=== PATIENT | female | born 1955 | race Caucasian/White ===

== ENCOUNTER → 2018-01-08 | Outpatient (CLI) | payer OTHER | LOC: COL.PUL 12-31 10:50 | DX: J44.9 Chronic obstructive pulmonary disease, unspecified (principal) ==

== ENCOUNTER → 2018-07-31 | Outpatient (CLI) | payer OTHER | LOC: COL.PUL 07-29 08:50 | DX: J44.1 Chronic obstructive pulmonary disease with (acute) exacerbation (principal) ==

== ENCOUNTER → 2020-06-21 | Outpatient (CLI) | payer MEDICARE, OTHER ==
[~2020-06-21] VITALS: Ht 154.9 cm; Wt 86.2 kg
[~2020-06-21] MED LIST: ASPIRIN E.C. 8181 MG PO; BROVANA15 MCG/2 M IH; COZAAR 25MG25 MG/TAB PO; DALIRESP500 MCG PO; LIPITOR 40MG TA40 MG PO; SINGULAIR 110 MG/TAB PO; YUPELRI175 MCG/3 IH; [UNRECOGNIZED DRUG - CODE] IRP
[2020-06-21 06:55] VITALS: BP 157/87; PULSE 89
[2020-06-21 08:00] VITALS: BP 125/61; PULSE 92
[2020-06-21 08:01] VITALS: BP 139/73; PULSE 97
[2020-06-21 08:02] VITALS: BP 130/65; PULSE 97
[2020-06-21 08:03] VITALS: BP 137/65; PULSE 94
== END ==
LOC: COL.CARD 06:30
DX: R06.09 Other forms of dyspnea (principal); R07.9 Chest pain, unspecified
CPT/HCPCS: A9500; J2785